=== PATIENT | female | born 1970 | race African-American/Black ===

== ENCOUNTER 2017-05-07 19:36 | Emergency (ER) | payer OTHER ==
[~2017-05-07] VITALS: Ht 160 cm; Wt 77.1 kg
--- NOTE | ~2017-05-07 | EKG ---
[place] [id number] [email or web address] [address] ELECTROCARDIOGRAM REPORT Name: SOMMER ARMSTRONG Room [facility] [id number] Admission: 05/07/17 Attend Phys: Discharge: 05/08/17 Date of : 66 Report #: [id number] THIS REPORT FOR: //name// [facility] ED Test Date: 2017-05-07 Test Time: 19:48:51 Pat Name: SOMMER MACDONALD Department: Room: Gender: F Radiagraph Operator: EMMANUEL : 1970 Requested By: Kody Pierce Order Number: [id number] MD: Gianni Abbasi Measurements Intervals [place] Rate: 87 P: 33 FL: 146 QRS: 27 QRSD: 79 T: 4 QT: 359 QTc: 432 Interpretive Statements Sinus rhythm No significant abnormality No previous ECG available for comparison Electronically Signed On 05-08-2017 7:19:41 CDT by Gianni Abbasi [email or web address] <ELECTRONICALLY SIGNED> By: Gianni Abbasi MD, [facility] 05/08/17 0719 1948 47 Gianni Abbasi MD, FACC /EPI
[2017-05-07 19:52] LABS: URINE BILIRUBIN NEGATIVE (Negative); URINE BLOOD NEGATIVE (Negative); URINE CLARITY SL CLOUDY; URINE COLOR YELLOW; URINE GLUCOSE-RANDOM* NEGATIVE (Negative); URINE KETONES NEGATIVE (Negative); URINE LEUKOCYTES NEGATIVE (Negative); URINE NITRITE NEGATIVE (Negative); URINE PROTEIN (DIPSTICK) TRACE (Negative); URINE SPECIFIC GRAVITY 1.025 (1.005-1.035); URINE UROBILINOGEN 0.2 E.U./dl (0.2-1.0)
[2017-05-07 20:00] LABS: AMP/METHAMP POSITIVE (Negative); BARBITURATES Negative (Negative); BENZODIAZEPINES Negative (Negative); COCAINE Negative (Negative); METHADONE Negative (Negative); OPIATES Negative (Negative); PCP Negative (Negative)
[2017-05-07 20:59] LABS: ABSOLUTE NEUTROPHILS 4.1 thou/uL (1.4-8.2); BASOPHILS 0.8 % (0.0-2.0); HEMATOCRIT 36.5 % (37.0-47.0); HEMOGLOBIN 11.7 gm/dL (12.0-15.0); LYMPHOCYTES 28.8 % (24.0-44.0); MCH 26.2 pg (26.0-34.0); MCHC 32.1 g/dL (28.0-37.0); MCV 81.8 fL (80.0-100.0); MONOCYTES 10.6 % (1.0-8.0); PLATELET COUNT 280 thou/uL (150-400); POLYS 57.8 % (36.0-66.0); RBC 4.46 mil/uL (4.20-5.00); RDW 14.8 % (10.5-14.5); WBC 7.1 thou/uL (4.0-11.0)
[2017-05-07 21:08] LABS: ANION GAP 7 mmol/L (7-16); BUN 14 mg/dL (7-18); CALCIUM 9.3 mg/dL (8.5-10.1); CHLORIDE 104 mmol/L (98-107); CO2 29 mmol/L (21-32); CREATININE 1.1 mg/dL (0.6-1.0); GLUCOSE 102 mg/dL (74-106); POTASSIUM 3.2 mmol/L (3.5-5.1); SODIUM 140 mmol/L (136-145)
[2017-05-07 21:16] LABS: SALICYLATE < 2.8 mg/dL (2.8-20.0); TROPONIN-I < 0.04 ng/mL (<0.06)
[2017-05-07] MEDS ORDERED: ADDERALL 10 MG10 MG PO (21:49)
[2017-05-07] MEDS ORDERED: XANAX 0.5 MG0.5 MG PO (21:49)
[2017-05-08] MEDS ORDERED: POTASSIUM20 PO (01:55)
== END 2017-05-08 02:10 | disposition still patient (30) ==
LOC: ER 19:36
PROVIDERS: Nurse Practitioner
DX: D49.7 Neoplasm of unspecified behavior of endocrine glands and other parts of nervous system (principal); E03.9 Hypothyroidism, unspecified; E87.6 Hypokalemia; R44.3 Hallucinations, unspecified; F48.9 Nonpsychotic mental disorder, unspecified

== ENCOUNTER 2017-07-21 13:35 | Emergency (ER) | payer OTHER ==
[~2017-07-21] VITALS: Ht 160 cm; Wt 72.6 kg
[~2017-07-21 13:35] MED LIST: ADDERALL 10 MG10 MG PO; POTASSIUM20 PO; XANAX 0.5 MG0.5 MG PO
[2017-07-21] MEDS ORDERED: PARLODEL PO (13:44)
[2017-07-21 14:11] LABS: URINE BILIRUBIN NEGATIVE (Negative); URINE BLOOD NEGATIVE (Negative); URINE CLARITY CLEAR; URINE COLOR YELLOW; URINE GLUCOSE-RANDOM* NEGATIVE (Negative); URINE KETONES NEGATIVE (Negative); URINE LEUKOCYTES-REFLEX NEGATIVE (Negative); URINE NITRITE-REFLEX NEGATIVE (Negative); URINE PROTEIN (DIPSTICK) NEGATIVE (Negative); URINE UROBILINOGEN 0.2 E.U./dl (0.2-1.0)
[2017-07-21 14:29] LABS: ABSOLUTE NEUTROPHILS 3.9 thou/uL (1.4-8.2); BASOPHILS 0.8 % (0.0-2.0); EOSINOPHILS 1.3 % (0.0-3.0); HEMATOCRIT 35.3 % (37.0-47.0); HEMOGLOBIN 11.3 gm/dL (12.0-15.0); LYMPHOCYTES 22.8 % (24.0-44.0); MCH 25.8 pg (26.0-34.0); MCHC 32.1 g/dL (28.0-37.0); MCV 80.3 fL (80.0-100.0); MONOCYTES 10.5 % (1.0-8.0); PLATELET COUNT 285 thou/uL (150-400); POLYS 64.6 % (36.0-66.0); RDW 14.2 % (10.5-14.5)
[2017-07-21 14:38] LABS: CALCIUM 9.2 mg/dL (8.5-10.1); CREATININE 0.9 mg/dL (0.6-1.0); POTASSIUM 4.2 mmol/L (3.5-5.1)
[2017-07-21] MEDS ORDERED: BUTALB-APAP-CA1 EACH PO (15:38)
[2017-07-21 15:52] VITALS: BP 130/84
== END 2017-07-21 15:52 | disposition home or self-care (01) ==
LOC: ER 13:35
PROVIDERS: Emergency Medicine; Physician Assistant
DX: R51 Headache (principal); D49.7 Neoplasm of unspecified behavior of endocrine glands and other parts of nervous system; E05.00 Thyrotoxicosis with diffuse goiter without thyrotoxic crisis or storm; J45.909 Unspecified asthma, uncomplicated; F41.9 Anxiety disorder, unspecified; F32.9 Major depressive disorder, single episode, unspecified; F90.9 Attention-deficit hyperactivity disorder, unspecified type; Z90.49 Acquired absence of other specified parts of digestive tract; Z90.721 Acquired absence of ovaries, unilateral